=== PATIENT | male | born 1965 | race Caucasian/White ===

== ENCOUNTER 2023-09-10 16:31 | Emergency (ER) | payer OTHER ==
[~2023-09-10] VITALS: Ht 175.3 cm; Wt 79.4 kg
[2023-09-10] MEDS ORDERED: Diphth,Pertuss(Acell),Tet Vac 0.5 ML VIAL IM ONE ×2 (16:40→17:00)
[2023-09-10] MEDS ORDERED: UNKNOWN BP MEDS (16:59)
[2023-09-10] MEDS ORDERED: STATIN (16:59)
[2023-09-10] MEDS ORDERED: NS 1,000 ML IV ONE (17:00)
[2023-09-10] MEDS ORDERED: HYDROmorphone HCl/Pf 1MG SYR IV PRN (17:00)
[2023-09-10] MEDS ORDERED: Ondansetron HCl 2 MG / ML 2ML Vial IV PRN (17:00)
[2023-09-10 17:30] LABS: BASOPHILS ABSOLUTE AUTO 0.04 K/mm3 (0.00-0.23); BASOPHILS PERCENT AUTO 1 % (0-2); EOSINOPHILS PERCENT AUTO 5 % (0-6); Hematocrit 34.8 % (37.0-53.0); Hemoglobin 11.4 g/dL (13.5-17.5); IMMATURE GRAN ABSOLUTE AUTO 0.01 K/mm3 (0.00-0.10); IMMATURE GRAN PERCENT AUTO 0 % (0-1); LYMPHOCYTES ABSOLUTE AUTO 1.42 K/mm3 (0.84-5.20); LYMPHOCYTES PERCENT AUTO 26 % (21-46); MONOCYTES ABSOLUTE AUTO 0.81 K/mm3 (0.16-1.47); MONOCYTES PERCENT AUTO 15 % (4-13); Mean Corpuscular HGB 29.9 pg (26.0-34.0); Mean Corpuscular HGB Conc 32.8 g/dL (31.5-36.5); Mean Corpuscular Volume 91 fL (80-100); Mean Platelet Volume 9.5 fL (9.1-12.4); NEUTROPHILS ABSOLUTE AUTO 2.93 K/mm3 (1.96-9.15); NEUTROPHILS PERCENT AUTO 53 % (41-73); Platelet Count 303 K/mm3 (150-400); RDW Coefficient Variation 14.1 % (11.7-14.2); RDW Standard Deviation 47.5 fL (35.1-46.3); Red Blood Cell Count 3.81 M/mm3 (4.30-5.90); White Blood Cell Count 5.51 K/mm3 (4.00-11.30)
[2023-09-10 17:52] LABS: Albumin, Blood 3.5 g/dL (3.4-5.0); Bilirubin, Total 0.4 mg/dL (0.1-1.0); Bun/Creatinine Ratio 13.4 (12.0-20.0); Calcium, Blood 8.8 mg/dL (8.5-10.1); Creatinine, Blood 1.12 mg/dL (0.60-1.20); Globulin, Blood 3.4 g/dL (2.2-4.0); Potassium, Blood 3.8 mmol/L (3.5-5.5); Total Protein, Blood 6.9 g/dL (6.4-8.2)
[2023-09-10] MEDS ORDERED: RX Prepack 6 Tabs Oxycodone 5mg UD ONE (19:20)
[2023-09-10] MEDS ORDERED: Percocet 5-3251 EACH PO (19:21)
== END 2023-09-10 19:43 | disposition home or self-care (01) ==
LOC: ER 16:31
PROVIDERS: Emergency Medicine
DX: S80.12XA Contusion of left lower leg, initial encounter (principal); R10.2 Pelvic and perineal pain; M25.562 Pain in left knee; M25.572 Pain in left ankle and joints of left foot; V86.56XA Driver of dirt bike or motor/cross bike injured in nontraffic accident, initial encounter; Z88.1 Allergy status to other antibiotic agents
CPT/HCPCS: 72170; 73552; 73562-LT; 73590; 73610; 80053; 85025; 90471; 90715; 96361; 96374; 96375; 99285-25; A9270; J1170; J2405; J7030

== ENCOUNTER 2023-12-05 09:00 | Emergency (ER) | payer OTHER ==
[~2023-12-05] VITALS: Ht 175.3 cm; Wt 72.6 kg
[~2023-12-05 09:00] MED LIST: Percocet 5-3251 EACH PO; STATIN; UNKNOWN BP MEDS
[2023-12-05] MEDS ORDERED: Aspirin 81 MG Chew PO ONE (09:20)
[2023-12-05] MEDS ORDERED: NS 1,000 ML IV SCH (09:20)
== END 2023-12-05 09:29 | disposition left against medical advice (07) ==
LOC: ER 09:00
DX: R07.9 Chest pain, unspecified (principal); I10 Essential (primary) hypertension; E78.5 Hyperlipidemia, unspecified; J44.9 Chronic obstructive pulmonary disease, unspecified; F17.210 Nicotine dependence, cigarettes, uncomplicated; Z88.1 Allergy status to other antibiotic agents
CPT/HCPCS: 99285-25